=== PATIENT | female | born 1970 | race African-American/Black ===

== ENCOUNTER 2022-01-20 01:54 | Emergency (ER) | payer SELFPAY ==
--- NOTE | 2022-01-20 03:16 | ER ---
Nurse's Notes [facility] Name: Ara Jung Age: 51 yrs Sex: Female : 1970 Arrival Date: 01/20/2022 Time: 01:57 Bed 20 Private MD: Diagnosis: Localized enlarged lymph nodes-SCALP Presentation: 01/20 02:11 Chief complaint: Patient states: she is being treated for a possible insect bite, 5 prescribed valtrex and bactrim which she took for the first time tonight. now dizzy and anxious, believes it's from the medications. Coronavirus screen: Vaccine status: Patient reports receiving the 2nd dose of the covid vaccine. Ebola Screen: No symptoms or risks identified at this time. Initial Sepsis Screen: Does the patient meet any 2 criteria? HR > 90 bpm. No. Patient's initial sepsis screen is negative. Does the patient have a suspected source of infection? No. Patient's initial sepsis screen is negative. Risk Assessment: Do you want to hurt yourself or someone else? Patient reports no desire to harm self or others. Onset of symptoms was January 20, 2022. 02:11 Method Of Arrival: Ambulatory [facility] 02:11 Acuity: BALTA 4 5 Triage Assessment: 02:12 General: Appears uncomfortable, Behavior is anxious. Pain: Denies pain. Neuro: Level of 5 Consciousness is awake, alert, obeys commands, Oriented to person, place, time, situation. Cardiovascular: Capillary refill < 3 seconds Patient's skin is warm and dry. Respiratory: Airway is patent Trachea midline Respiratory effort is even, unlabored. Historical: - Allergies: 02:12 PENICILLINS; sm5 - PMHx: 02:12 None; sm5 - Immunization history:: Client reports receiving the 2nd dose of the Covid vaccine. - Social history:: Smoking status: Patient denies any tobacco usage or history of. - Family history:: not pertinent. Screenin:13 Abuse screen: Denies threats or abuse. Denies injuries from another. Nutritional 5 screening: No deficits noted. Tuberculosis screening: No symptoms or risk factors identified. Fall Risk None identified. Assessment: 02:30 Reassessment: see triage assessment. 5 03:24 Reassessment: No changes from previously documented assessment. Patient and/or family 5 updated on plan of care and expected duration. Pain level reassessed. Vital Signs: 02:11 BP 156 / 95; Pulse 115; Resp 19; Temp 98.0(O); Pulse Ox 96% on R/A; Weight 95.25 kg; sm5 Height 5 ft. 9 in. (175.26 cm); Pain 0/10; 02:30 BP 141 / 89; Pulse 92; Resp 19; Pulse Ox 96% on R/A; sm5 03:23 BP 128 / 85; Pulse 85; Resp 18; Pulse Ox 98% on R/A; sm5 02:11 Body Mass Index 31.01 (95.25 kg, 175.26 cm) 5 ED Course: 01:57 Patient arrived in ED. mr 02:02 Nan Adrian, RN is Primary Nurse. 5 02:02 Blas Powell MD is Attending Physician. bonnie 02:12 Triage completed. 5 02:13 Arm band placed on right wrist. 5 02:13 Patient has correct armband on for positive identification. Bed in low position. Call 5 light in reach. Side rails up X2. 03:14 Quincy Camarillo MD is Referral Physician. bonnie 03:24 No provider procedures requiring assistance completed. Patient did not have IV access [facility] during this emergency room visit. Administered Medications: No medications were administered Medication: 03:24 VIS not applicable for this client. [facility] Outcome: 03:15 Discharge ordered by . bonnie 03:24 Discharged to home ambulatory. 5 03:24 Condition: stable 03:24 Discharge instructions given to patient, Instructed on discharge instructions, follow up and referral plans. medication usage, Demonstrated understanding of instructions, follow-up care, medications, Prescriptions given X 1. 03:25 Patient left the ED. 5 Signatures: Blas Powell MD MD cha Rivera, Mary mr Nan Adrian, RN RN [facility]
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
[2022-01-20 03:35] VITALS: TEMP 98
[2022-01-20 03:41] VITALS: BP 128/85; O2SAT 98
== END 2022-01-20 03:25 | disposition home or self-care (01) ==
LOC: ER 01:54
DX: R59.0 Localized enlarged lymph nodes (principal); Z88.0 Allergy status to penicillin

== ENCOUNTER 2022-01-21 01:29 | Emergency (ER) | payer SELFPAY ==
[2022-01-21 02:08] LABS: Urine Blood Negative (Negative); Urine Glucose Negative (Negative); Urine Protein Negative (Negative); Urine Specific Gravity <=1.005 (1.005-1.030); Urine pH 6.5 (5.0-7.0)
[2022-01-21 02:33] LABS: Absolute Lymphocytes (CBC) 3.2 K/uL (0.7-4.9); Hematocrit 41.8 % (36.0-45.0); MCV 91.4 fL (80-100); MPV 7.9 fL (7.6-11.3); RBC Red Blood Cell Count 4.58 M/uL (3.86-4.86)
[2022-01-21 02:35] LABS: Protime INR 1.12
[2022-01-21] MEDS ORDERED: NA CHLORIDE 0.9% 1,000 ML ONE (02:42)
[2022-01-21] MEDS ORDERED: ASPIRIN 81 MG CHEWABLE TABLET ONE (02:42)
[2022-01-21 02:50] LABS: ALT/SGPT 28 U/L (12-78); AST/SGOT 15 U/L (15-37); Albumin 3.4 g/dL (3.4-5.0); Alkaline Phosphatase 60 U/L (45-117); BUN Blood Urea Nitrogen 14 mg/dL (7-18); Bicarbonate 22 mmol/L (21-32); Bilirubin Total 0.2 mg/dL (0.2-1.0); Glomerular Filtration Rate 54 ml/min (=/>90); Glucose Level 103 mg/dL (74-106); Lipase 124 U/L (73-393); Magnesium 1.8 mg/dL (1.8-2.4); NT PRO-BNP 123 pg/mL (<125); Potassium 3.5 mmol/L (3.5-5.1); Protein, Total 6.9 g/dL (6.4-8.2); Sodium Level 137 mmol/L (136-145); Troponin High Sensitivity 5.3 pg/mL (<58.9)
[2022-01-21 02:51] LABS: Bilirubin Direct < 0.1 mg/dL (0-0.2)
--- NOTE | 2022-01-21 03:04 | ER ---
Nurse's Notes [facility] Name: Ara Jung Age: 51 yrs Sex: Female : 1970 Arrival Date: 01/21/2022 Time: 01:32 Bed 7 Private MD: Diagnosis: Chest pain, [id number] Presentation: 01/21 01:47 Chief complaint: Patient states: around 6:30 last night I started having chest kd3 tightness on the left side of my chest. I drank a pre workout around that time. it has just been getting tighter since then. I was here last night for an allergic reaction to an insect bite. Coronavirus screen: Vaccine status: Patient reports receiving the 2nd dose of the covid vaccine. Ebola Screen: No symptoms or risks identified at this time. Initial Sepsis Screen: Does the patient meet any 2 criteria? No. Patient's initial sepsis screen is negative. Does the patient have a suspected source of infection? No. Patient's initial sepsis screen is negative. Risk Assessment: Do you want to hurt yourself or someone else? Patient reports no desire to harm self or others. Onset of symptoms. 01:47 Method Of Arrival: Ambulatory kd3 01:47 Acuity: BALTA 3 kd3 Triage Assessment: 01:49 General: Appears in no apparent distress. Behavior is calm, cooperative. Pain: kd3 Complains of pain in anterior aspect of left upper chest. Cardiovascular: Patient's skin is warm and dry. 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 - Social history:: Smoking status: unknown. - Family history:: not pertinent. Screenin:49 Abuse screen: Denies threats or abuse. Denies injuries from another. Nutritional kd3 screening: No deficits noted. Tuberculosis screening: No symptoms or risk factors identified. Fall Risk None identified. Assessment: 01:50 Pain: Pain does not radiate. Pain began gradually. kd3 Vital Signs: 01:47 Temp 98.2(O); Pulse Ox 100% on R/A; Weight 95.25 kg; Height 5 ft. 9 in. (175.26 cm); kd3 Pain 7/10; 02:22 BP 138 / 98; Pulse 82; Resp 16; kd3 01:47 Body Mass Index 31.01 (95.25 kg, 175.26 cm) kd3 ED Course: 01:32 Patient arrived in ED. bp1 01:36 Blas Powell MD is Attending Physician. bonnie 01:36 Nohemi Quan, ANTONIO is Primary Nurse. kd3 01:49 Triage completed. kd3 01:49 Arm band placed on right wrist. kd3 01:50 Patient has correct armband on for positive identification. Client placed on continuous kd3 cardiac and pulse oximetry monitoring. NIBP monitoring applied. 01:50 Patient maintains SpO2 saturation greater than 95% on room air. kd3 01:50 No provider procedures requiring assistance completed. kd3 02:40 SARS-COV-2 RT PCR (Document "Date of Onset" if Symptomatic) Sent. kd3 02:47 XRAY Chest (1 view) In Process Unspecified. EDMS 03:04 Freddie Trevino MD is Referral Physician. bonnie 03:12 IV discontinued, intact, bleeding controlled, No redness/swelling at site. Pressure kd3 dressing applied. Administered Medications: 02:40 Drug: Aspirin Chewable Tablet 324 mg Route: PO; kd3 03:13 Follow up: Response: No adverse reaction kd3 02:40 Drug: NS 0.9% 1000 ml Route: IV; Rate: 125 ml/hr; Site: right antecubital; kd3 03:13 Follow up: Response: No adverse reaction; IV Status: Completed infusion kd3 Medication: 01:50 VIS not applicable for this client. kd3 Outcome: 03:04 Discharge ordered by . [facility] 03:12 Discharged to home ambulatory. kd3 03:12 Condition: stable 03:12 Discharge instructions given to patient, family, Instructed on discharge instructions, follow up and referral plans. Demonstrated understanding of instructions, follow-up care, medications, Prescriptions given X 1. 03:13 Patient left the ED. kd3 Signatures: Dispatcher [employer] EDOH Blas Powell MD MD cha Paniauga, Brittany bp1 Nohemi Quan, ANTONIO RN kd3
--- NOTE | 2022-01-21 03:05 | EDPHYS ---
Physician Documentation [facility] Name: Ara Jung Age: 51 yrs Sex: Female : 1970 Arrival Date: 01/21/2022 Time: 01:32 Bed 7 Private MD: LOUISE Physician Blas Powell HPI: 01/21 02:37 This 51 yrs old Black Female presents to ER via Ambulatory with complaints of Chest bonnie Tightness. 02:37 The patient or guardian reports chest pain that is located primarily in the anterior bonnie chest wall, bilaterally. Onset: 1 day(s) ago. The pain does not radiate. Associated signs and symptoms: The patient has no apparent associated signs or symptoms. The chest pain is described as aching. Duration: The patient or guardian reports multiple episodes, that wax and wane. Modifying factors: The symptoms are alleviated by remaining still, the symptoms are aggravated by movement, palpation of area. Severity of pain: At its worst the pain was mild in the emergency department the pain is unchanged. The patient has not experienced similar symptoms in the past. 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 - Social history:: Smoking status: unknown. - Family history:: not pertinent. ROS: 02:37 Constitutional: Negative for fever, chills, and weight loss, Eyes: Negative for injury, bonnie pain, redness, and discharge, ENT: Negative for injury, pain, and discharge, Neck: Negative for injury, pain, and swelling, Respiratory: Negative for shortness of breath, cough, wheezing, and pleuritic chest pain, Abdomen/GI: Negative for abdominal pain, nausea, vomiting, diarrhea, and constipation, Back: Negative for injury and pain, : Negative for injury, bleeding, discharge, and swelling, MS/Extremity: Negative for injury and deformity, Skin: Negative for injury, rash, and discoloration, Neuro: Negative for headache, weakness, numbness, tingling, and seizure, Psych: Negative for depression, anxiety, suicide ideation, homicidal ideation, and hallucinations, Allergy/Immunology: Negative for hives, rash, and allergies, Endocrine: Negative for neck swelling, polydipsia, polyuria, polyphagia, and marked weight changes, Hematologic/Lymphatic: Negative for swollen nodes, abnormal bleeding, and unusual bruising. 02:37 Cardiovascular: Positive for chest pain. Exam: 02:37 Constitutional: This is a well developed, well nourished patient who is awake, alert, bonnie and in no acute distress. Head/Face: Normocephalic, atraumatic. Eyes: Pupils equal round and reactive to light, extra-ocular motions intact. Lids and lashes normal. Conjunctiva and sclera are non-icteric and not injected. Cornea within normal limits. Periorbital areas with no swelling, redness, or edema. ENT: Nares patent. No nasal discharge, no septal abnormalities noted. Tympanic membranes are normal and external auditory canals are clear. Oropharynx with no redness, swelling, or masses, exudates, or evidence of obstruction, uvula midline. Mucous membranes moist. Neck: Trachea midline, no thyromegaly or masses palpated, and no cervical lymphadenopathy. Supple, full range of motion without nuchal rigidity, or vertebral point tenderness. No Meningismus. Cardiovascular: Regular rate and rhythm with a normal S1 and S2. No gallops, murmurs, or rubs. Normal PMI, no JVD. No pulse deficits. Respiratory: Lungs have equal breath sounds bilaterally, clear to auscultation and percussion. No rales, rhonchi or wheezes noted. No increased work of breathing, no retractions or nasal flaring. Abdomen/GI: Soft, non-tender, with normal bowel sounds. No distension or tympany. No guarding or rebound. No evidence of tenderness throughout. Back: No spinal tenderness. No costovertebral tenderness. Full range of motion. Skin: Warm, dry with normal turgor. Normal color with no rashes, no lesions, and no evidence of cellulitis. MS/ Extremity: Pulses equal, no cyanosis. Neurovascular intact. Full, normal range of motion. Neuro: Awake and alert, GCS 15, oriented to person, place, time, and situation. Cranial nerves II-XII grossly intact. Motor strength 5/5 in all extremities. Sensory grossly intact. Cerebellar exam normal. Normal gait. 02:37 Chest/axilla: Inspection: normal, Palpation: tenderness, that is mild, of the anterior aspect of left upper chest and left breast. 02:37 Cardiovascular: Exam negative for acute changes, arrhythmia, bradycardia, edema, gallop, JVD, murmur, pulse deficit, rub, tachycardia. 02:37 ECG was reviewed by the Attending Physician. Vital Signs: 01:47 Temp 98.2(O); Pulse Ox 100% on R/A; Weight 95.25 kg; Height 5 ft. 9 in. (175.26 cm); kd3 Pain 7/10; 02:22 BP 138 / 98; Pulse 82; Resp 16; kd3 01:47 Body Mass Index 31.01 (95.25 kg, 175.26 cm) kd3 MDM: 01:36 Patient medically screened. bonnie 02:42 Differential diagnosis: abnormal EKG, acute pericarditis, anxiety, coronary artery bonnie disease chest wall pain, Cholelithiasis esophagitis, gastritis, herpes zoster, hiatal hernia, pancreatitis, pneumonia, pulmonary embolus, stable angina, unstable angina. HEART Score: ECG: Normal (0), Age: > 45 and < 65 years (1), Risk Factors: 1 or 2 risk factors (1), [+ Family HX] [Obesity]. The patient was given aspirin in the Emergency Department. The patient's deep vein thrombosis risk score was calculated as follows: Total Score: 0. This patient was found to be at low risk for a deep vein thrombosis by using the Well's assessment criteria. The patient's pulmonary embolism risk score was calculated as follows: Total Score: 0-2 points. This patient was found to be at low risk for a pulmonary embolism by using the Well's assessment criteria. SUSIE Risk Score: TOTAL SCORE = 0. Data reviewed: vital signs, nurses notes, lab test result(s), EKG, radiologic studies, plain films. 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 Test interpretation: by ED physician or midlevel provider: ECG, plain radiologic studies. Counseling: I had a detailed discussion with the patient and/or guardian regarding: the historical points, exam findings, and any diagnostic results supporting the discharge/admit diagnosis, the presence of at least one elevated blood pressure reading (>120/80) during this emergency department visit, lab results, radiology results, the need for outpatient follow up. 01/21 01:37 Order name: Basic Metabolic Panel; Complete Time: 03:03 bonnie 01/21 01:37 Order name: CBC with Diff; Complete Time: 02:36 [facility] 01/21 01:37 Order name: D-Dimer; Complete Time: 02:36 [facility] 01/21 01:37 Order name: LFT's; Complete Time: 03:03 [facility] 01/21 01:37 Order name: Magnesium; Complete Time: 03:03 [facility] 01/21 01:37 Order name: NT PRO-BNP; Complete Time: 03:03 [facility] 01/21 01:37 Order name: PT-INR; Complete Time: 02:36 [facility] 01/21 01:37 Order name: Troponin HS; Complete Time: 03:03 [facility] 01/21 01:37 Order name: XRAY Chest (1 view) [facility] 01/21 01:37 Order name: SARS-COV-2 RT PCR (Document "Date of Onset" if Symptomatic) [facility] 01/21 01:37 Order name: Lipase; Complete Time: 03:03 [facility] 01/21 02:08 Order name: Urine Dipstick-Ancillary; Complete Time: 02:36 EDMS 01/21 01:37 Order name: EKG; Complete Time: 01:38 [facility] 01/21 01:37 Order name: Cardiac monitoring; Complete Time: 01:46 [facility] 01/21 01:37 Order name: EKG - Nurse/Tech; Complete Time: 01:46 [facility] 01/21 01:37 Order name: IV Saline Lock; Complete Time: 02:22 [facility] 01/21 01:37 Order name: Labs collected and sent; Complete Time: 02:22 [facility] 01/21 01:37 Order name: O2 Per Protocol; Complete Time: 01:46 [facility] 01/21 01:37 Order name: O2 Sat Monitoring; Complete Time: 01:46 [facility] EC:37 Rate is 88 beats/min. Rhythm is regular. QRS [place] is Normal. HI interval is normal. QRS bonnie interval is normal. QT interval is normal. No Q waves. T waves are Normal. No ST changes noted. Clinical impression: Normal ECG and No evidence of ischemia. Interpreted by me. Reviewed by me. Administered Medications: 02:40 Drug: Aspirin Chewable Tablet 324 mg Route: PO; kd3 03:13 Follow up: Response: No adverse reaction kd3 02:40 Drug: NS 0.9% 1000 ml Route: IV; Rate: 125 ml/hr; Site: right antecubital; kd3 03:13 Follow up: Response: No adverse reaction; IV Status: Completed infusion kd3 Disposition Summary: 01/21/22 03:04 Discharge Ordered Location: Home bonnie Problem: new bonnie Symptoms: have improved bonnie Condition: Stable bonnie Diagnosis - Chest pain, unspecified - non-cardiac bonnie Followup: bonnie - With: Private Physician - When: 2 - 3 days - Reason: Recheck today's complaints, Continuance of care, Re-evaluation by your physician Followup: bonnie - With: - When: 2 - 3 days - Reason: Recheck today's complaints, Continuance of care, Re-evaluation by your physician Discharge Instructions: - Discharge Summary Sheet bonnie - Nonspecific Chest Pain, Adult bonnie - Chest Wall Pain bonnie - Nonspecific Chest Pain, Pediatric bonnie - Chest Wall Pain, [id number] bonnie - Nonspecific Chest Pain, Adult, [id number] bonnie - Aspirin and Your Heart bonnie Forms: - Medication Reconciliation Form bonnie - Thank You Letter bonnie - Antibiotic Education bonnie - Prescription Opioid Use bonnie Prescriptions: - Ibuprofen 600 mg Oral Tablet - take 1 tablet by ORAL route every 6 hours As needed take with food; 20 tablet; [facility] Refills: 0, Product Selection Permitted Signatures: Dispatcher [employer] Blas Wills MD MD cha Doucette, Kyli RN RN kd3
[2022-01-21 03:35] VITALS: TEMP 98.2; O2SAT 100
[2022-01-21 03:36] VITALS: BP 138/98
--- NOTE | 2022-01-21 12:17 | RAD REPORT ---
EXAM DESCRIPTION: RAD - Chest Single View - 01/21/2022 2:45 am CLINICAL HISTORY: CHEST PAIN COMPARISON: None. FINDINGS: Single frontal radiograph view of the chest. Cardiomediastinal silhouette: Normal size and contour. Lungs: No consolidation, pneumothorax, or pleural effusion. Bones: No acute osseous abnormality. Upper abdomen: No abnormality identified. IMPRESSION: 1. No acute pulmonary process identified. Electronically signed by: Pierre Reese 01/21/2022 4:56 AM CDT Due to temporary technical issues with the PACS/Fluency reporting system, reports are being signed by the in house radiologists without review as a courtesy to insure prompt reporting. The interpreting radiologist is fully responsible for the content of the report.
--- NOTE | 2022-01-23 13:52 | EKG ---
Test Date: 2022-01-21 Test Time: 01:44:54 Director Of Field Coordination: ADAMARIS MEASUREMENT RESULTS: Intervals: Rate: 88 GA: 148 QRSD: 82 QT: 348 QTc: 421 Sarah Ann: P: 68 GA: 148 QRS: 29 T: 40 INTERPRETIVE STATEMENTS: Normal sinus rhythm Normal ECG No previous ECG available for comparison Electronically Signed On 01-23-22 13:47:50 CDT by Titi Austin
== END 2022-01-21 03:13 | disposition home or self-care (01) ==
LOC: ER 01:29
DX: R07.89 Other chest pain (principal); Z88.0 Allergy status to penicillin; Z20.822 Contact with and (suspected) exposure to COVID-19
CPT/HCPCS: 36415; 71045; 80048; 80076; 81003; 83690; 83735; 83880; 84484; 85025; 85379; 85610; 93005; 96360; 99284; J7030; U0003